=== PATIENT | female | born 1995 | race Two or more races ===

== ENCOUNTER 2017-09-21 08:30 | Inpatient (IN) | payer OTHER ==
[2017-09-21] MEDS ORDERED: DEXTROSE 5%-LACTATED RINGERS 1,000 ML IV SCH (09:30)
[2017-09-21 09:52] VITALS: BMI 46.5
[2017-09-21 10:25] LABS: BASO % 0.8 % (0-2.0); EOS % 3.9 % (0-4.5); HEMOGLOBIN 12.3 GM/dL (10.7-15.3); LYMPH % 18.3 % (8-40); MCH 27.5 pg (25.7-33.7); MCHC 33.2 g/dl (32.0-36.0); MEAN CELL VOLUME 82.8 fl (80-96); MEAN PLT VOLUME 6.4 fl (7.5-11.1); MONO % 5.9 % (3.8-10.2); NEUT % 71.1 % (42.8-82.8); PLATELET COUNT 317 K/MM3 (134-434); RBC 4.46 M/mm3 (3.60-5.2); RDW 14.8 % (11.6-15.6); WHITE BLOOD COUNT 12.3 K/mm3 (4.0-10.0)
[2017-09-21] MEDS ORDERED: TUBERCULIN PPD 5 TU/0.1ML SYRINGE (IN PATIENT USE ONLY) ID ONE (10:30)
[2017-09-21 10:38] LABS: INR 1.06 (0.82-1.09)
[2017-09-21 10:45] LABS: ANION GAP 9 (8-16); BLOOD UREA NITROGEN 4 mg/dL (7-18); CALCIUM 8.5 mg/dL (8.5-10.1); CHLORIDE 108 mmol/L (98-107); CO2 21 mmol/L (21-32); CREATININE 0.4 mg/dL (0.55-1.02); GLUCOSE,RANDOM 120 mg/dL (74-106); POTASSIUM 3.9 mmol/L (3.5-5.1); SODIUM 138 mmol/L (136-145)
--- NOTE | 2017-09-21 12:19 | HP ---
Past Medical History - Admission Chief Complaint: Labor pain History of Present Illness: 22 yo , @ 40 weeks gestation, presents c/o labor pain. Upon admission she was 3cm dilated. History Source: Patient Limitations to Obtaining History: No Limitations - Past Medical History ...: 1 ...Para: 0 ...LMP: 12/21/16 ... Weeks Gestation by Dates: 39.1 ...EDC by Dates: 09/27/17 ...EDC by Sono: 09/19/17 - Past Surgical History Past Surgical History: Yes: None Hx Myomectomy: No Hx Transabdominal Cerclage: No - Smoking History Smoking history: Never smoked - Alcohol/Substance Use Hx Alcohol Use: No Home Medications - Allergies Allergies/Adverse Reactions: Allergies Allergy/AdvReac Type Severity Reaction Status Date / Time No Known Allergies Allergy Verified 09/16/17 21:00 - Home Medications Home Medications: Ambulatory Orders Tablet 1 tablet PO DAILY 09/16/17 Family Disease History - Family Disease History Family History: Unremarkable Review of Systems - Review of Systems Constitutional: reports: No Symptoms Eyes: reports: No Symptoms HENT: reports: No Symptoms Neck: reports: No Symptoms Cardiovascular: reports: No Symptoms Respiratory: reports: No Symptoms Gastrointestinal: reports: No Symptoms Genitourinary: reports: Pain Breasts: reports: No Symptoms Reported Musculoskeletal: reports: No Symptoms Neurological: reports: No Symptoms Endocrine: reports: No Symptoms Hematology/Lymphatic: reports: No Symptoms Psychiatric: reports: No Symptoms Pain Intensity: 8 Physical Exam - Maternity Vital Signs: Vital Signs Temperature 98.1 F 09/21/17 11:00 Pulse Rate 103 H 09/21/17 11:00 Respiratory Rate 20 09/21/17 11:00 Blood Pressure 110/66 09/21/17 11:00 O2 Sat by Pulse Oximetry (%) Constitutional: Yes: Well Nourished Eyes: Yes: Conjunctiva Clear HENT: Yes: Atraumatic Neck: Yes: Supple Cardiovascular: Yes: Regular Rate and Rhythm Lungs: Clear to auscultation - Abdominal Exam/OB Number of Fetuses: Single Presentation: Vertex - Vaginal Exam/OB Amniotic Membrane Status: Intact Station: -2 - Physical Exam Musculoskeletal: Yes: WNL Extremities: Yes: WNL ...Motor Strength: WNL Psychiatric: Yes: Alert, Oriented - Labs Lab Results: CBC, BMP 09/21/17 10:15 09/21/17 10:15 Problem List - Problems (1) Pain during labor Code(s): O99.89 - OTH DISEASES AND CONDITIONS COMPL PREG/CHLDBRTH; R52 - PAIN, UNSPECIFIED Assessment/Plan Pain during labor $0 weeks gestation Admit to L&D Analgesia as needed Anticipate
[2017-09-21] MEDS ORDERED: FENTANYL/BUPIVACAINE/NS/PF - PCEA - 50 ML DISP.SYRIN EP ONE (15:07)
[2017-09-21] MEDS ORDERED: BUPIVACAINE HCL/PF 0.25% (2.5MG/ML) 10 ML VIAL ONE (15:14)
--- NOTE | 2017-09-21 15:35 | PN ---
Progress Note (short form) - Note Progress Note: 22 yo , @ 40 weeks gestation, admitted for labor pain, seen and re- evaluated. She c/o moderate discomfort. FHR : Reassuring Marvin : + irregular contractions VE : 4 70 / -2 AROM ( light meconium ) A / P : Active labor Epidural anesthesia Pitocin augmentation Anticipate Problem List - Problems (1) Pain during labor Code(s): O99.89 - OTH DISEASES AND CONDITIONS COMPL PREG/CHLDBRTH; R52 - PAIN, UNSPECIFIED
[2017-09-21] MEDS ORDERED: FENTANYL/BUPIVACAINE/NS/PF - PCEA - 50 ML DISP.SYRIN EP SCH (15:40)
[2017-09-21] MEDS ORDERED: OXYTOCIN 30 UNITS in 0.9% NS 30 UNIT/500 ML INFUS.BAG IVPB SCH (15:45)
[2017-09-21] MEDS ORDERED: NALOXONE HCL 0.4 MG/ML VIAL IVPUSH PRN (15:50)
[2017-09-21] MEDS ORDERED: OXYTOCIN 30 UNITS in 0.9% NS 30 UNIT/500 ML INFUS.BAG IVPB ONE (16:34)
[2017-09-21] MEDS ORDERED: ELECTROLYTE-148 SOLN 1,000 ML IV SCH (18:15)
[2017-09-21] MEDS ORDERED: LIDOCAINE HCL 1% PRESERVATIVE FREE - 30ML VIAL ONE (20:33)
[2017-09-21] MEDS ORDERED: OXYTOCIN 20 UNITS in 0.9% NS 20 UNIT/1,000 ML INFUS.BAG IV ONE (20:33)
[2017-09-21] MEDS: ACETAMINOPHEN 325 MG TABLET (FP) PO PRN (21:15)
[2017-09-21] MEDS ORDERED: ACETAMINOPHEN 325 MG TABLET (FP) ONE (21:17)
[2017-09-21] MEDS ORDERED: WITCH HAZEL 50% (TUCKS) 40 PAD/JAR PAD TP PRN (22:07)
[2017-09-21] MEDS ORDERED: IBUPROFEN 600 MG TABLET (FP) PO PRN (22:07)
[2017-09-21] MEDS ORDERED: BISACODYL 10 MG SUPP.RECT RC PRN (22:07)
[2017-09-21] MEDS ORDERED: BENZOCAINE 28 GM HEMORRHOIDAL OINTMENT TP PRN (22:07)
[2017-09-21] MEDS ORDERED: BENZOCAINE 20% 57 GM BOTTLE TP PRN (22:07)
[2017-09-21] MEDS ORDERED: METHYLERGONOVINE MALEATE 0.2 MG/1 ML AMP IM PRN (22:07)
--- NOTE | 2017-09-21 22:12 | PN ---
Delivery - Delivery Vaginal Delivery: Spontaneous Type of Anesthesia: Epidural Episiotomy/Laceration: Midline EBL (cc): 350 Delivery, Single - Feeding Plan Initial Plan: Elected not to breastfeed exclusively throughout hospitalization Remarks - Remarks Remarks: Normal spontaneous vaginal delivery of a live infant boy over midline episiotomy. Nose / Oropharynx suctioned @ perineum. Cord clamped and cut. Placenta expelled spontaneously intact. Midline episiotomy repaired with 2.0 Chromic.
[2017-09-21] MEDS ORDERED: OXYTOCIN 20 UNITS in 0.9% NS 20 UNIT/1,000 ML INFUS.BAG IV SCH (22:15)
--- NOTE | 2017-09-22 08:12 | PN ---
Post Progress Note Post Day: 1 Type of Delivery: Vital Signs: Vital Signs Temperature 98.7 F 09/22/17 01:22 Pulse Rate 95 H 09/22/17 01:22 Respiratory Rate 20 09/22/17 01:22 Blood Pressure 112/65 09/22/17 01:22 O2 Sat by Pulse Oximetry (%) 100 09/21/17 21:20 Breast Exam: Yes: Soft Uterus: Yes: Fundus Firm, Non-tender Abdomen/GI: Yes: Abdomen soft, Passing flatus, Tolerating PO Lochia: Yes: Serosa Lochia, amount: Moderate Extremities: Yes: Calves non-tender Perineum: Yes: Episiotomy Activity: Ambulating - Labs Labs: CBC WBC 12.3 K/mm3 (4.0-10.0) H 09/21/17 10:15 RBC 4.46 M/mm3 (3.60-5.2) 09/21/17 10:15 Hgb 12.3 GM/dL (10.7-15.3) 09/21/17 10:15 Hct 37.0 % (32.4-45.2) 09/21/17 10:15 MCV 82.8 fl (80-96) 09/21/17 10:15 MCH 27.5 pg (25.7-33.7) 09/21/17 10:15 MCHC 33.2 g/dl (32.0-36.0) 09/21/17 10:15 RDW 14.8 % (11.6-15.6) 09/21/17 10:15 Plt Count 317 K/MM3 (134-434) 09/21/17 10:15 MPV 6.4 fl (7.5-11.1) L 09/21/17 10:15 Neutrophils % 71.1 % (42.8-82.8) 09/21/17 10:15 Lymphocytes % 18.3 % (8-40) 09/21/17 10:15 Monocytes % 5.9 % (3.8-10.2) 09/21/17 10:15 Eosinophils % 3.9 % (0-4.5) 09/21/17 10:15 Basophils % 0.8 % (0-2.0) 09/21/17 10:15 Assessment/Plan condition stable s/p continue post care encourage ambulation
[2017-09-22] MEDS: FERROUS SO4 325 MG TABLET (FP) PO SCH ×3 (08:25→17:30)
[2017-09-22 08:35] LABS: BASO % 0.6 % (0-2.0); EOS % 1.9 % (0-4.5); HEMATOCRIT 34.6 % (32.4-45.2); HEMOGLOBIN 11.3 GM/dL (10.7-15.3); LYMPH % 17.6 % (8-40); MCH 26.9 pg (25.7-33.7); MCHC 32.7 g/dl (32.0-36.0); MEAN CELL VOLUME 82.2 fl (80-96); MEAN PLT VOLUME 6.4 fl (7.5-11.1); MONO % 6.8 % (3.8-10.2); NEUT % 73.1 % (42.8-82.8); PLATELET COUNT 284 K/MM3 (134-434); RDW 14.8 % (11.6-15.6); WHITE BLOOD COUNT 18.7 K/mm3 (4.0-10.0)
[2017-09-22] MEDS: PRENATAL VITAMINS W/ FOLIC ACID TABLET (FP) PO SCH (09:20)
[2017-09-22] MEDS: ACETAMINOPHEN 325 MG TABLET (FP) PO PRN (17:29)
[2017-09-22] MEDS ORDERED: SENNOSIDES/DOCUSATE COMBO (SENNA PLUS) TABLET (UD) PO PRN (22:00)
--- NOTE | 2017-09-23 07:35 | DS ---
Physical Exam-[employer] Vital Signs: Vital Signs Temperature 98.2 F 09/22/17 22:00 Pulse Rate 99 H 09/22/17 22:00 Respiratory Rate 18 09/22/17 22:00 Blood Pressure 113/64 09/22/17 22:00 O2 Sat by Pulse Oximetry (%) 100 09/21/17 21:20 Constitutional: Yes: Well Nourished Eyes: Yes: Conjunctiva Clear HENT: Yes: Atraumatic Neck: Yes: Supple Cardiovascular: Yes: Regular Rate and Rhythm Respiratory: Yes: Regular Gastrointestinal: Yes: Normal Bowel Sounds ...Rectal Exam: Yes: WNL Pelvis: Yes: WNL External Genitalia: Yes: Normal Vaginal Exam: Yes: Normal Cervix: Yes: Normal Uterus: Yes: Firm ....Post : Yes: Uterus firm, Moderate lochia serosa Extremities: Yes: WNL Neurological: Yes: Alert, Oriented ...Motor Strength: WNL Psychiatric: Yes: Alert, Oriented Labs: CBC, BMP 09/22/17 07:45 09/21/17 10:15 Delivery - Delivery Vaginal Delivery: Spontaneous Type of Anesthesia: Local, Epidural Episiotomy/Laceration: Midline EBL (cc): 350 Delivery, Single - Stages of Labor Date 1st Stage Initiatied: 09/21/17 Time 1st Stage Initiated: 05:00 Date 2nd Stage Initiated: 09/21/17 Time 2nd Stage Initiated: 20:30 Date of Delivery: 09/21/17 Time of Delivery: 21:44 Time Placenta Delivered: 21:50 - 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 F/U in clinic in 6 weeks Disposition: HOME - Home Medications Comprehensive Discharge Medication List: Ambulatory Orders Tablet 1 tablet PO DAILY 09/16/17
[2017-09-23 07:55] VITALS: BP 92/54; PULSE 85; TEMP 98.6
[2017-09-23] MEDS: FERROUS SO4 325 MG TABLET (FP) PO SCH ×2 (08:47→11:52)
[2017-09-23] MEDS: PRENATAL VITAMINS W/ FOLIC ACID TABLET (FP) PO SCH (09:48)
== END 2017-09-23 12:15 | disposition home or self-care (01) | DRG 560 ==
LOC: JDEL 08:30 → JLDR 09:20 → J3W 09-22 00:20
PROVIDERS: ADMIT Obstetrics & Gynecology; ATTEND Obstetrics & Gynecology
PROC: 10E0XZZ Delivery of Products of Conception, External Approach (ICD-10-PCS; principal; 2017-09-21)
PROC: 0W8NXZZ Division of Female Perineum, External Approach (ICD-10-PCS; 2017-09-21)
DX: O48.0 Post-term pregnancy (principal); Z3A.40 40 weeks gestation of pregnancy; Z37.0 Single live birth
CPT/HCPCS: 36415; 59409; 80048; 85025; 85610; 85730; 86593; 86850; 86900; 86901